=== PATIENT | male | born 1955 | race Caucasian/White ===

== ENCOUNTER 2022-02-22 17:51 | Emergency (ER) | payer MEDICARE, OTHER ==
[2022-02-22 19:07] LABS: HEMOGLOBIN 15.8 gm/dl (14.0-17.5); RED BLOOD COUNT 5.14 M/UL (4.20-5.50); WHITE BLOOD COUNT 7.7 K/UL (4.5-11.0)
[2022-02-22 19:25] LABS: BUN/CREATININE RATIO 21 (0-10)
== END 2022-02-23 10:45 | disposition home or self-care (01) ==
LOC: ER1 17:51
PROVIDERS: Physician Assistant
DX: R53.1 Weakness (principal); R42 Dizziness and giddiness; Z20.822 Contact with and (suspected) exposure to COVID-19; E78.5 Hyperlipidemia, unspecified; Z88.1 Allergy status to other antibiotic agents
CPT/HCPCS: 70450; 70496; 70498; 70551; 80053; 81001; 82550; 82553; 82962; 84484; 85025; 85610; 93005; 99285; Q9967; U0002